=== PATIENT | male | born 1980 | race Caucasian/White ===

== ENCOUNTER 2018-04-24 18:18 | Emergency (ER) | payer SELFPAY ==
[~2018-04-24] VITALS: Ht 180.3 cm; Wt 77.1 kg
[2018-04-24 18:20] VITALS: BP 102/65
--- NOTE | 2018-04-24 18:20 | NUR ---
ED Nurse Note: brought in by [facility] due to medical clearance. Per officer, pt reported that he swallowed 3g of heroin in a plastic bag at 1530. Pt is under custody. A/Ox4.
--- NOTE | 2018-04-24 19:04 | Emergency Room Report ---
History of Present Illness General Chief Complaint: Medical Clearance Source: Patient, Medical Record Present Illness HPI 38-year-old male presents to the emergency department for medical clearance for incarceration. Patient states that he swallowed approximately 3 g of heroin that was wrapped in saran wrap at approximately 3:20 PM today. He denies any other complaints or symptoms at this time denies abdominal pain, nausea, vomiting, diarrhea or constipation, abdominal tenderness or drowsiness. Denies CP, SOB, palpitations or Acute on set of a severe headache. Denies pmhx. Allergies: Coded Allergies: No Known Allergies (Unverified , 04/24/18) Patient History Past Medical History: see triage record Past Surgical History: none Pertinent Family History: none Reviewed Nursing Documentation: PMH: Agreed; PSxH: Agreed Nursing Documentation-PMH Past Medical History: No History, Except For Review of Systems All Other Systems: negative except mentioned in HPI Physical Exam Vital Signs Date Time Temp Pulse Resp B/P (MAP) Pulse Ox O2 Delivery O2 Flow Rate FiO2 04/24/18 18:20 92 16 Room Air 04/24/18 18:20 98.2 102/65 95 Sp02 EP Interpretation: reviewed, normal General Appearance: no apparent distress, alert, GCS 15, non-toxic Head: normocephalic, atraumatic Eyes: bilateral eye normal inspection, bilateral eye PERRL - not pinpoint, ENT: hearing grossly normal, normal voice Neck: full range of motion Respiratory: chest non-tender, lungs clear, normal breath sounds, no respiratory distress, no accessory muscle use, no wheezing, speaking full sentences Cardiovascular #1: regular rate, rhythm Gastrointestinal: normal bowel sounds, non tender, soft, non-distended, no guarding Musculoskeletal: back normal, gait/station normal - ambulatory, normal range of motion, non-tender Neurologic: alert, oriented x3, responsive, motor strength/tone normal, sensory intact, speech normal, grossly normal Psychiatric: judgement/insight normal Skin: normal color, no rash, warm/dry, well hydrated Medical Decision Making PA Attestation Dr. ward is my supervising Physician whom patient management has been discussed with. Diagnostic Impression: Primary Impression: Medical clearance for incarceration Additional Impressions: Drug ingestion Qualified Codes: T50.904A - Poisoning by unspecified drugs, medicaments and biological substances, undetermined, initial encounter History of foreign body ingestion ER Course 38-year-old male presents to the emergency department for medical clearance for incarceration. Patient states that he swallowed approximately 3 g of heroin that was wrapped in saran wrap at approximately 3:20 PM today. He denies any other complaints or symptoms at this time denies abdominal pain, nausea, vomiting, diarrhea or constipation, abdominal tenderness or drowsiness. Denies CP, SOB, palpitations or Acute on set of a severe headache. Denies pmhx. Ddx considered but are not limited to Head Trauma, [place], ACS, SI/HI, URI, SAH, Fractures, Dislocations, Tazer barbs, Abrasions, Drug OD, bowel obstruction, just to name a few. Vital signs: are WNL, pt. is afebrile H&PE are most consistent with: normal general physical examination. No evidence of acute drug intoxication ORDERS: -CXR -KUB ED INTERVENTIONS: None required at this time. Consult with general surgeon who recommends 24 hour observation as this may not be visible on imaging. [place] Anne at [facility] [place] patient and continue pt. management : Observation DISPOSITION: this time pt. is stable for law enforcement Transfer to Dr. Anne at [facility] for admission for 24 hour observation. Will provide printed patient care instructions, and any necessary prescriptions. Care plan and follow up instructions have been discussed with the patient prior to discharge. Chest X-Ray Diagnostic Results Chest X-Ray Diagnostic Results : Chest X-Ray Ordered: Yes # of Views/Limited/Complete: 1 View EP Interpretation: Yes PA Xray: Interpretation reviewed, by supervising MD, and agrees with findings. Interpretation: no consolidation, no effusion, no pneumothorax, no acute cardiopulmonary disease, other - no obvious FB in the Airways or esophagus Impression: No acute disease Electronically Signed by: Marsha Duffy PA-C Other X-Ray Diagnostic Results Other X-Ray Diagnostic Results : X-Ray ordered: KUB # of Views/Limited Vs Complete: 1 View Indication: Other - alleged drug/fb ingestion EP Interpretation: Yes PA Xray: Interpretation reviewed, by supervising MD, and agrees with findings. Interpretation: nonspecific bowel gas, no sbo, other - moderate amt of stool. No obvious fb's Impression: No acute disease Electronically Signed by: Marsha Duffy PA-C Last Vital Signs Date Time Temp Pulse Resp B/P (MAP) Pulse Ox O2 Delivery O2 Flow Rate FiO2 04/24/18 18:20 98.2 92 16 102/65 95 Room Air Disposition: D/C TO LAW ENFORCEMENT IN CUST - Pt. is not D/C, Transfer of care to Dr. Anne [facility] with law enforcement transfer. pt. to have 24 hour observation Condition: Stable Physician Consult: Dr. Mcguire Patient Instructions: Medical Screening Exam Additional Instructions: Law Enforcement /in Custody Transfer to [facility] for Admission/ 24 hour Observation for alleged consumption of approximately 3g heroin wrapped in saran wrap at 3: 30pm Marsha Duffy Apr 24, 2018 19:04
--- NOTE | 2018-04-24 19:12 | NUR ---
HAND-OFF: Report given to VICTORIANO Sky. No s/s of distress.
--- NOTE | 2018-04-24 19:30 | NUR ---
ED Nurse Note: Patient lying in chairs, expresses want for a sandwich. No s/s of acute distress, patient in and out of napping. Patient able to change position with ease. No complaints of pain at this time. Plan of care discuss with supervising MD and PA. officers informed and awaiting action plan.
--- NOTE | 2018-04-24 20:59 | NUR ---
ED Nurse Note: Patient sleeping upright in chair. Patient responds to disturbance and follows commands.
--- NOTE | 2018-04-24 21:22 | NUR ---
ED Nurse Note: Called in to give report to Kasey, the charge nurse. Patient is still sleeping, lying lateral in chairs. vss. Patient has no s/s of acute distress at this time.
--- NOTE | 2018-04-24 21:41 | NUR ---
ED Nurse Note: Patient cleared for transfer with [facility]. Patient ambulatory with steady gait, A&Ox4. no s/s of acute distress. report called in to VICTORIANO Parks charge prior to departure.
[2018-04-24 21:42] VITALS: BP 102/65
--- NOTE | 2018-04-25 15:51 | Diagnostic Imaging Report ---
EXAM: XR Abdomen, 1 View CLINICAL HISTORY: SCREEN, evaluate for foreign body. TECHNIQUE: Frontal supine view of the abdomen/pelvis. COMPARISON: No relevant prior studies available. FINDINGS: Gastrointestinal tract: Large amount of stool projected in the colon. No plain film evidence for significant bowel loop dilation to suggest an obstructive process. Bones/joints: Unremarkable. Soft tissues: No definite plain film evidence for radiopaque foreign body. IMPRESSION: 1. No definite plain film evidence for radiopaque foreign body. 2. Large amount of stool projected in the colon.
--- NOTE | 2018-04-25 15:51 | Diagnostic Imaging Report ---
EXAM: XR Chest, 1 View CLINICAL HISTORY: SCREEN TECHNIQUE: Frontal view of the chest. COMPARISON: No relevant prior studies available. FINDINGS: Lungs: No definite plain film evidence for infiltrate in the visualized portions of the lungs. Pleural space: The left costophrenic angle is not included on the film. The right costophrenic angle is sharp. No plain film evidence for pneumothorax. Heart: The cardiac silhouette is unremarkable. Mediastinum: Unremarkable. Bones/joints: Unremarkable. IMPRESSION: No plain film evidence for acute abnormality.
== END 2018-04-24 21:45 ==
LOC: EMR 18:36
DX: Z02.89 Encounter for other administrative examinations (principal); T50.904A Poisoning by unspecified drugs, medicaments and biological substances, undetermined, initial encounter
CPT/HCPCS: 71045; 74018; 99284